=== PATIENT | female | born 1940 | race Caucasian/White ===

== ENCOUNTER 2017-09-12 14:21 | Emergency (ER) | payer OTHER ==
[~2017-09-12 14:21] MED LIST: MIRA0.12 PO; OLAN2.5T PO; VENL25TA14 PO
[2017-09-12 14:26] VITALS: BP 146/76; PULSE 86; RESP 12; TEMP 98.1; O2SAT 98
--- NOTE | 2017-09-12 15:32 | RADRPT ---
EXAM DATE/TIME: 09/12/2017 15:05 [facility] COMPARISON: No previous studies available for comparison. INDICATIONS : Pain mid shaft of left humerus to left elbow MEDICAL HISTORY : fell 07/2017 SURGICAL HISTORY : left shoulder replacement done over 07/2017. original surgery 07/2016 ENCOUNTER: Initial ACUITY: 1 month PAIN SCORE: 5/10 LOCATION: Left shoulder FINDINGS: 2 views of the left humerus reveal an acute comminuted fracture of the distal humeral metadiaphysis. This occurs just distal to the intramedullary fernando. It is associated with 3 cerclage wires. One cercla ge wire has been displaced into the adjacent soft tissues. The distal fracture fragment has been disp laced lateral and posterior relative to the more proximal fracture fragment. Underlying osteopenia no ravin. 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 CONCLUSION: Acute distal humeral fracture as detailed above. Tio Tran Jr., MD on September 12, 2017 at 15:28 Board Certified Radiologist. This report was verified electronically.
--- NOTE | 2017-09-12 16:11 | PD ---
HPI Chief Complaint: Injury Time Seen by Provider: 15:38 Travel History International Travel<30 days: No Contact w/Intl Traveler<30days: No Traveled to known affect area: No History of Present Illness HPI 37-year-old female presents to emergency department complaining of left arm pain. Patient states that she had surgery August [address] Koenig and has had difficulty with movement of her shoulder. Patient has not followed up with an orthopedist yet and today complains of pain to her distal humerus. Patient does have sensation and movement as usual. Patient denies falls or trauma to the left arm or elbow. States her shoulder "feels floppy" and as occasionally tingling of the pinky finger. Patient also states that she has abnormal sensation of her thumb that improves with movement. PFSH Past Medical History Depression: Yes Diminished Hearing: No Musculoskeletal: Yes (RESTLESS LEG SYNDROME) Psychiatric: Yes Immunizations Current: Yes Seizures: Yes Past Surgical History Abdominal Surgery: Yes (GASTRIC BYPASS) Appendectomy: Yes Section: Yes Cholecystectomy: Yes Gynecologic Surgery: Yes Tonsillectomy: Yes Other Surgery: Yes (broken left arm fall 2016) Social History Alcohol Use: Yes (ON OCCASION) Tobacco Use: No (QUIT IN 1969) Substance Use: No Allergies-Medications (Allergen,Severity, Reaction): Coded Allergies: codeine (Unverified Allergy, Severe, Hallucinations, 09/12/17) penicillin G (Unverified Allergy, Severe, 09/12/17) SWELLING Sulfa (Sulfonamide Antibiotics) (Unverified Allergy, Unknown, 09/12/17) Reported Meds & Prescriptions Reported Meds & Active Scripts Active Reported Lisinopril 2.5 Mg Tab 2.5 Mg PO DAILY Lamotrigine 25 Mg Tab 25 Mg PO DAILY Neupro Patch 24 HR (Rotigotine Patch 24 HR) 6 Mg/24 Hr Patch 6 Mg T-DERMAL DAILY Gabapentin 100 Mg Cap 100 Mg PO BID Effexor (Venlafaxine HCl) 25 Mg Tab 25 Mg PO Q12H Review of Systems Except as stated in HPI: all other systems reviewed are Neg Physical Exam Narrative GENERAL: Well-developed well-nourished in no apparent distress SKIN: Focused skin assessment warm/dry. HEAD: Atraumatic. Normocephalic. EYES: Pupils equal and round. No scleral icterus. No injection or drainage. ENT: No nasal bleeding or discharge. Mucous membranes pink and moist. NECK: Trachea midline. No JVD. MUSCULOSKELETAL: No obvious deformities. No clubbing. No cyanosis. No edema. Left arm- long arm cast to upper mid humerus. Neurovascularly intact distally. No significant edema or ecchymosis observed. Left shoulder- noticeable atrophy of the shoulder girdle without tenderness to palpation or deformities. NEUROLOGICAL: Awake and alert. No obvious cranial nerve deficits. Motor grossly within normal limits. Normal speech. PSYCHIATRIC: Appropriate mood and affect; insight and judgment normal. Data Data Last Documented VS Vital Signs Date Time Temp Pulse Resp B/P (MAP) Pulse Ox O2 Delivery O2 Flow Rate FiO2 09/12/17 14:26 98.1 86 12 146/76 (99) 98 Orders Orders Humerus (Min 2vws) (09/12/17 ) Ed Discharge Order (09/12/17 16:31) [facility] Medical Decision Making Medical Screen Exam Complete: Yes Emergency Medical Condition: Yes Differential Diagnosis Humerus fracture versus contusion versus, surgeries Narrative Course 37-year-old female presents to emergency department complaining of left arm pain. Patient states that she had surgery August [address] Koenig and has had difficulty with movement of her shoulder. Patient has not followed up with an orthopedist yet and today complains of pain to her distal humerus. Patient does have sensation and movement as usual. Patient denies falls or trauma to the left arm or elbow. States her shoulder "feels floppy" and as occasionally tingling of the pinky finger. Patient also states that she has abnormal sensation of her thumb that improves with movement. Vital signs stable Physical exam- patient in a long-arm cast, no significant ecchymosis or edema, neurovascularly intact distally and proximally. No evidence of trauma or falls. I spoke with Dr. Cason, her new orthopedist and he reviewed previous and current x-ray of her left arm. He states that the x-ray is stable. Patient is neurovascularly intact and in no acute distress. He recommended a follow-up as scheduled with him. I explained this thoroughly to patient and patient was reassured. I also explained patient complains of occasional numbness and tingling of the pinky. 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 Patient likely has some tenderness along her thumb and was advised to keep her hands moving to reduce atrophy and neuropathy of the hand. Again patient is neurovascularly intact. Patient to continue medications as prescribed in her previous office visits. Follow-up with primary care within 2-3 days. If symptoms persist or worsen return to the emergency department Physician Communication Physician Communication I spoke with Dr. Cason, her new orthopedist and he reviewed the x-rays from prior treatment and the current. Based off of my history and physical and Dr. Cason is evaluation patient will follow-up as scheduled with him. Diagnosis Primary Impression: Humerus fracture Qualified Codes: S42.402A - Unspecified fracture of lower end of left humerus , initial encounter for closed fracture Referrals: Orthopedist Additional Instructions: Followed up with your orthopedist as scheduled. Continue to move your hands and fingers to reduce weakening of her muscles If your persist or worsen return to the emergency department Disposition: 01 DISCHARGE HOME Condition: Stable Riddhi Roth Sep 12, 2017 16:11
[2017-09-12] MEDS ORDERED: ROTI6DIS T-DERMAL (16:14)
[2017-09-12] MEDS ORDERED: VENL25TA PO (16:14)
[2017-09-12] MEDS ORDERED: GABA100C4 PO (16:14)
[2017-09-12] MEDS ORDERED: LISI2.5T3 PO (16:15)
[2017-09-12] MEDS ORDERED: LAMO25TA PO (16:15)
== END 2017-09-12 17:03 | disposition home or self-care (01) ==
LOC: NEPK 14:21
DX: S42.492A Other displaced fracture of lower end of left humerus, initial encounter for closed fracture (principal); F32.9 Major depressive disorder, single episode, unspecified; G25.81 Restless legs syndrome; R56.9 Unspecified convulsions; X58.XXXA Exposure to other specified factors, initial encounter; Z79.899 Other long term (current) drug therapy; Z88.5 Allergy status to narcotic agent; Z88.0 Allergy status to penicillin; Z88.2 Allergy status to sulfonamides
CPT/HCPCS: 73060; 99283

== ENCOUNTER 2017-09-23 06:03 | Inpatient (IN) | payer OTHER, MEDICARE ==
[~2017-09-23] VITALS: Ht 160 cm; Wt 68.5 kg
[~2017-09-23 06:03] MED LIST changes: +GABA100C4 PO; +LAMO25TA PO; +LISI2.5T3 PO; -MIRA0.12 PO; -OLAN2.5T PO; +ROTI6DIS T-DERMAL; +VENL25TA PO; -VENL25TA14 PO
[2017-09-23] MEDS ORDERED: VENTAER INH (06:59)
[2017-09-23] MEDS ORDERED: SYMB160A INH (06:59)
[2017-09-23] MEDS ORDERED: CARV6.252 PO (06:59)
[2017-09-23] MEDS ORDERED: TRAM50TA PO (06:59)
[2017-09-23] MEDS ORDERED: HYDR-3516 PO (06:59)
[2017-09-23] MEDS ORDERED: CLINDAMYCIN 900 MG/NS 100 ML IV SCH ×2 (07:00)
[2017-09-23] MEDS ORDERED: VANCOMYCIN 1000 MG/NS 250 ML (for <70 kg) IV SCH ×2 (07:00)
[2017-09-23] MEDS ORDERED: POVIDONE IODINE 5% (ANTISEPSIS KIT) 4 APPLICATIONS EACH NARE PRN (07:00)
[2017-09-23] MEDS ORDERED: SODIUM CHLORID 0.9% 500 ML IV PRN (07:00)
[2017-09-23] MEDS ORDERED: CHLORHEXIDINE GLUCONATE 2 % 1 PACK (2 CLOTHS) TOPICAL PRN (07:00)
[2017-09-23] MEDS ORDERED: LACTATED RINGER'S 1000 ML IV PRN (07:00)
[2017-09-23] MEDS ORDERED: INSULIN HUMAN REGULAR 1,000 UNITS/10 ML VIAL SQ PRN (07:00)
[2017-09-23] MEDS ORDERED: METOPROLOL TARTRATE 25 MG TAB PO PRN (07:00)
[2017-09-23] MEDS ORDERED: CHLORHEXIDINE GLUCONATE 4% SOLN 120 ML BTL TOPICAL SCH (07:00)
[2017-09-23] MEDS ORDERED: GENTAMICIN SULFATE 80 MG/2 ML VIAL ONE (07:02)
[2017-09-23] MEDS ORDERED: VANCOMYCIN HCL 1000 MG VIAL ONE ×2 (07:02→09:49)
[2017-09-23] MEDS ORDERED: APREPITANT 40 MG CAP ONE (07:31)
[2017-09-23] MEDS ORDERED: ONDANSETRON HCL 4 MG/2 ML VIAL ONE (07:31)
[2017-09-23] MEDS ORDERED: FAMOTIDINE 20 MG/2 ML VIAL ONE (07:38)
[2017-09-23] MEDS ORDERED: ACETAMINOPHEN 1000 MG/100 ML 100 ML IV ONE (07:38)
[2017-09-23] MEDS ORDERED: CLINDAMYCIN PHOS 600 MG/4 ML VIAL ONE (08:06)
--- NOTE | 2017-09-23 09:35 | EKG ---
Date Performed: 09/23/2017 Time Performed: 07:46:24 PTAGE: 77 years EKG: Baseline artifact present Sinus rhythm NONSPECIFIC T-WAVE ABNORMALITY BORDERLINE ECG NO PREVIOUS TRACING DOCTOR: Kian Koehler Interpretating Date/Time 09/23/2017 09:34:39
[2017-09-23] MEDS ORDERED: ONDANSETRON HCL 4 MG/2 ML VIAL IVP PRN (10:00)
[2017-09-23] MEDS ORDERED: diphenhydrAMINE HCL 25 MG CAP PO PRN (10:00)
[2017-09-23] MEDS ORDERED: MORPHINE SULFATE 4 MG/ML INJ IV PUSH PRN (10:00)
--- NOTE | 2017-09-23 10:08 | PD.OP ---
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 Surgeon: Erik Saldana Home Appliance Technician(s): MAG Stein PA-C The surgical procedure was assisted by my physician assistant professor of history. My P.A. presence was necessary throughout this case for the manipulation and positioning of the surgical extremity. My P.A. was assisting me throughout the duration of this procedure. The skill set of a physician assistant professor of history was medically necessary to complete this procedure. During the surgical case the telecommunications switch technician was working at the back table and the physician assistant professor of history was directly assisting me. Operation and Findings: Patient was seen and evaluated preoperatively. She has a left distal humerus fracture nonunion. She initially had surgery by Dr. Koenig and chandan don 6 weeks ago. She has continued pain and nonunion. Treatment options were discussed regarding humerus fracture including surgical and nonsurgical treatments. After detailed discussion of risk and benefits of procedure patient wishes to proceed with surgery. Risks of surgery include bleeding, infection, nonunion, malunion, painful hardware, loss of motion of shoulder and elbow, weakness and numbness of arm, as well as medical competitions including blood clots stroke and . Patient was brought to operating room and placed on the OR table. GETA was administered by anesthesiologist. Patient was positioned in lateral decubitus position. Extremities were well-padded. Axillary roll was placed. Operative arm and shoulder were prepped with alcohol followed by Hibiclens and draped usual sterile fashion. Timeout procedure was performed. IV antibiotics were given prior to incision. A standard posterior approach was utilized. Subcutaneous tissues was dissected with Bovie. The triceps muscle was split midline. The radial nerve was identified and protected throughout the procedure. The nerve was intact. Because of the previous surgeries as well as the nonunion, there was a large amount of scar tissue around the radial nerve and fracture site. The fracture was identified. There was gross mobility at the fracture site. There was a large amount of fracture callus around the soft tissue of the fracture. The fracture callus was harvested for use as bone graft. Curettes and rongeurs were used to carefully harvest this fracture callus. Soft tissue was removed from the fracture site. The nonunion site was thoroughly debrided. Fracture site was cleaned with curettes and rongeurs the fracture was manipulated to achieve reduction. At this point the fracture was reduced using fracture tenaculums. Multiplanar fluoroscopy confirmed excellent of fracture. A Synthes 3.5 plate was contoured to fit the humerus. Plate was provisionally held the bone with K wires. 3.5 cortical screws were placed distal to the fracture to compress plate to bone. Next attention was turned to the proximal end of the plate. Cables were carefully passed around the humeral shaft. 3 cables were passed along the plate. Care was taken to avoid injury to neurovascular structures. The cables were carefully tensioned appropriately. Multiplanar fluoroscopy confirmed excellent alignment of fracture with well- placed hardware. Additional unicortical locking screws were placed proximally along the prosthesis for additional rotational stability. Additional locking screws were placed distally. All screws were predrilled and premeasured for appropriate length. Final fluoroscopy revealed excellent alignment of fracture with well-placed hardware. Incision was thoroughly irrigated. The previously obtained bone graft was now packed around the nonunion site. Fascia was closed with #1 Vicryl, subcutaneous tissues closed with 3-0 Vicryl, and skin was closed with ilda. Sterile dressings were applied. Needle and sponge counts were correct. Patient was placed into a sling, and then transferred to recovery room in stable condition Erik Saldana MD Sep 23, 2017 10:08
[2017-09-23] MEDS ORDERED: HYDR-3288 PO (10:10)
[2017-09-23] MEDS ORDERED: ALBUTEROL SULFATE 90 MCG/ACT HFA 8 GM INHALER INH PRN (10:15)
[2017-09-23] MEDS ORDERED: DO NOT ADM ANY ANTICOAGULANT DRUGS PRN (10:28)
[2017-09-23] MEDS ORDERED: CALCTAB19 PO (10:35)
[2017-09-23] MEDS ORDERED: VITA500012 PO (10:35)
--- NOTE | 2017-09-23 10:38 | HHI.FF ---
Face to Face Verification Diagnosis: (1) Fracture of humeral shaft, left, closed Occupational Therapy Left UE Weight Bearing: Non WB Left UE Range of Motion: Passive ROM Additional Instructions Passive range of motion of shoulder and elbow. Pendulum swing education. Sling all times except for range of motion Nursing Dressing Changes: Daily dressing change, Robbi wrap, 4x4s, Xeroform Additional Instructions Loose Robbi wrap. No Urban to be used I have seen patient Isabella Allen on 09/23/17. My clinical findings support the need for the requested home health care services because: Limited ability to care for self I certify that my clinical findings support that this patient is homebound because: Post-op weakness Tho Camejo Jr. BRANDON Sep 23, 2017 10:38
--- NOTE | 2017-09-23 10:41 | PD.ORT.PN ---
Subjective Subjective Remarks Patient transferred in stable condition to PACU Objective Vitals Vital Signs Date Time Temp Pulse Resp B/P (MAP) Pulse Ox O2 Delivery O2 Flow Rate FiO2 09/23/17 07:14 98.0 65 20 154/67 (96) 98 I/O 09/22/17 09/22/17 09/22/17 09/23/17 09/23/17 09/23/17 07:00 15:00 23:00 07:00 15:00 23:00 Intake Total 1400 ml Output Total 150 ml Balance 1250 ml Intake Other 1400 ml Output Estimated Blood Loss 150 ml Objective Remarks Left upper extremity: Clean dry dressings intact. Sling in place. Distally good capillary refills Assessment & Plan Assessment and Plan Left periprosthetic humeral shaft fracture revision POD 0 with ORIF Nonweightbearing left upper extremity Physical therapy for passive range of motion of shoulder and elbow. Pendulum swings Sling at all times except for range of motion exercises Plan for discharge to home tomorrow with home health care Follow-up with Dr. Cason or PA in 2 weeks Tho Camejo Jr. Sep 23, 2017 10:41
[2017-09-23] MEDS ORDERED: *morphine SULFATE 8 MG/ML PERIprocedure ONLY ONE (10:56)
[2017-09-23] MEDS ORDERED: *ENALAPRILAT 1.25 MG/ML VIAL PERIprocedural Use ONLY ONE (11:04)
--- NOTE | 2017-09-23 11:06 | RADRPT ---
EXAM DATE/TIME: 09/23/2017 09:43 [facility] COMPARISON: HUMERUS LEFT (MIN 2VWS), September 12, 2017, 15:05. INDICATIONS : Left humerus open reduction internal fixation. MEDICAL HISTORY : None. SURGICAL HISTORY : Left humerus, ORIF. ENCOUNTER: Initial ACUITY: 1 day PAIN SCORE: Non-responsive. LOCATION: Left humerus FINDINGS: 9 spot fluoroscopic images of the humerus obtained in the operating room during a procedure demonstra jair placement of a humeral side plate with multiple interlocking screws. There is an already indwelli ng fernando within the humerus. Cerclage wires have been repositioned or replaced. There is improved anato bev alignment. CONCLUSION: Improved alignment following left humerus ORIF. Tommy Mota MD on September 23, 2017 at 11:03 Board Certified Radiologist. This report was verified electronically.
[2017-09-23 11:45] VITALS: BP 160/75; PULSE 67; RESP 18; TEMP 96.1; O2SAT 97
[2017-09-23] MEDS ORDERED: DEXAMETHASONE SOD PHOS 4 MG/ML VIAL IV ONE (12:00)
[2017-09-23] MEDS ORDERED: GLYCOPYRROLATE 1 MG/5 ML SYRINGE IV PUSH ONE (12:00)
[2017-09-23] MEDS ORDERED: LIDOCAINE HCL 1% PF 5 ML SYRINGE OTHER ONE (12:00)
[2017-09-23] MEDS ORDERED: PHENYLEPH/NS 1000 MCG/10 ML SYR IV ONE (12:00)
[2017-09-23] MEDS ORDERED: ROCURONIUM INJ 50 MG/5 ML SYRINGE IV PUSH ONE (12:00)
[2017-09-23] MEDS ORDERED: MIDAZOLAM HCL 2 MG/2 ML VIAL IV ONE (12:00)
[2017-09-23] MEDS ORDERED: NEOSTIGMINE 5 MG/5 ML SYRINGE IV PUSH ONE (12:00)
[2017-09-23] MEDS ORDERED: PROPOFOL 200 MG/20 ML AMP IV ONE (12:00)
[2017-09-23] MEDS ORDERED: ceFAZolin INJ 1,000 MG VIAL IV ONE (12:00)
[2017-09-23] MEDS ORDERED: METOPROLOL TARTRATE 5 MG/5 ML VIAL IV PUSH ONE (12:00)
[2017-09-23] MEDS ORDERED: PILL SPLITTER OTHER PRN (12:15)
[2017-09-23] MEDS ORDERED: ERGOCALCIFEROL (VIT D2) 50,000 UNIT CAP PO SCH (13:00)
[2017-09-23] MEDS: CALCIUM/VITAMIN D 250 MG/125 U TAB PO SCH ×2 (15:21→17:14)
[2017-09-23 16:00] VITALS: BP 188/99; PULSE 74; RESP 18; TEMP 96.7; O2SAT 98
[2017-09-23] MEDS ORDERED: CLINDAMYCIN 600 MG/DEX PREMIX 50 ML IV SCH (16:00)
[2017-09-23] MEDS: ACETAMINOPHEN/HYDROcodone 325 MG/7.5 MG TAB PO PRN ×2 (17:15→22:23)
[2017-09-23] MEDS: VENLAFAXINE HCL 25 MG TAB PO SCH ×2 (17:16→21:00)
[2017-09-23 19:00] VITALS: BP 194/78; PULSE 70; RESP 18; TEMP 96.7; O2SAT 98
[2017-09-23] MEDS: DOCUSATE SODIUM 50 MG/SENNA 8.6 MG TAB PO SCH (21:00)
[2017-09-23] MEDS: BUDESONIDE-FORMOTEROL 160/4.5 MCG INHALER INH SCH (21:00)
[2017-09-23] MEDS: CARVEDILOL 6.25 MG TAB PO SCH (22:14)
[2017-09-23] MEDS: GABAPENTIN 100 MG CAP PO SCH (22:15)
[2017-09-23 23:29] VITALS: BP 146/67; PULSE 77; RESP 18; TEMP 98.3; O2SAT 94
[2017-09-23] MEDS ORDERED: lamoTRIgine 25 MG TAB PO ONE (23:30)
[2017-09-23] MEDS: CLINDAMYCIN 600 MG/NS PREMIX 50 ML IV SCH (23:42)
[2017-09-24] MEDS: ACETAMINOPHEN/HYDROcodone 325 MG/7.5 MG TAB PO PRN ×3 (02:08→15:41)
--- NOTE | 2017-09-24 07:21 | PD.ORT.PN ---
Subjective Subjective Remarks pt complains of post op soreness involving left arm Objective Vitals Vital Signs Date Time Temp Pulse Resp B/P (MAP) Pulse Ox O2 Delivery O2 Flow Rate FiO2 09/23/17 23:29 98.3 77 18 146/67 (93) 94 09/23/17 19:00 96.7 70 18 194/78 (116) 98 09/23/17 16:00 96.7 74 18 188/99 (128) 98 09/23/17 11:45 96.1 67 18 160/75 (103) 97 09/23/17 11:22 98.4 66 15 153/75 (101) 98 Nasal Cannula 2 09/23/17 11:00 66 17 177/59 (98) 98 Nasal Cannula 2 09/23/17 10:45 70 17 158/70 (99) 96 Nasal Cannula 3 09/23/17 10:31 98.2 67 14 149/67 (94) 100 Simple Mask 6 I/O 09/23/17 09/23/17 09/23/17 09/24/17 09/24/17 09/24/17 07:00 15:00 23:00 07:00 15:00 23:00 Intake Total 2100 ml 530 ml 360 ml Output Total 150 ml Balance 1950 ml 530 ml 360 ml Intake Oral 600 ml 480 ml 360 ml IV Total 100 ml 50 ml Other 1400 ml Output Urine Total 0 ml Estimated Blood Loss 150 ml # Voids 2 3 1 # Bowel Movements 0 0 0 Objective Remarks seen by Dr. Alber Hernandez Left upper extremity: Clean dry dressings intact. Sling in place. Distally good capillary refills Assessment & Plan Assessment and Plan Left periprosthetic humeral shaft fracture revision POD #1 with ORIF Nonweightbearing left upper extremity Physical therapy for passive range of motion of shoulder and elbow. Pendulum swings Sling at all times except for range of motion exercises Plan for discharge home today with [facility] if physical therapy thinks appropriate has hx of Restleg legs syndrome, normally on Neupro 6 mg patch, fine for patient to use Follow-up with Dr. Cason or PA in 2 weeks Jacqueline Montenegro Sep 24, 2017 07:21
[2017-09-24] MEDS: CLINDAMYCIN 600 MG/NS PREMIX 50 ML IV SCH (07:54)
[2017-09-24 08:00] VITALS: BP 149/69; PULSE 65; RESP 20; TEMP 97.9; O2SAT 98
[2017-09-24] MEDS ORDERED: DOCUSATE SODIUM 100 MG CAP PO SCH (09:00)
[2017-09-24] MEDS ORDERED: ROTIGOTINE TOPICAL SCH (09:00)
[2017-09-24] MEDS ORDERED: LISINOPRIL 5 MG TAB PO SCH (09:00)
[2017-09-24] MEDS: DOCUSATE SODIUM 50 MG/SENNA 8.6 MG TAB PO SCH (09:00)
[2017-09-24] MEDS ORDERED: CHOLECALCIFEROL (VIT D3) 1000 UNIT TAB PO SCH (09:00)
[2017-09-24] MEDS ORDERED: lamoTRIgine 25 MG TAB PO SCH (09:00)
[2017-09-24] MEDS: BUDESONIDE-FORMOTEROL 160/4.5 MCG INHALER INH SCH ×2 (09:00→09:17)
[2017-09-24] MEDS: CALCIUM/VITAMIN D 250 MG/125 U TAB PO SCH ×3 (09:17→17:52)
[2017-09-24] MEDS: CARVEDILOL 6.25 MG TAB PO SCH (09:17)
[2017-09-24] MEDS: VENLAFAXINE HCL 25 MG TAB PO SCH (09:18)
[2017-09-24] MEDS: GABAPENTIN 100 MG CAP PO SCH (09:19)
[2017-09-24 12:00] VITALS: BP 183/83; PULSE 63; RESP 20; TEMP 98.7; O2SAT 95
[2017-09-24 16:00] VITALS: BP 140/60; PULSE 70; RESP 20; TEMP 97.8; O2SAT 98
== END 2017-09-24 19:22 | DRG 494 ==
LOC: HSDI 06:03 → N06A 11:47
PROVIDERS: ADMIT Orthopaedic Surgery Orthopaedic Trauma; ATTEND Orthopaedic Surgery Orthopaedic Trauma
PROC: 0PUG07Z Supplement Left Humeral Shaft with Autologous Tissue Substitute, Open Approach (ICD-10-PCS; 2017-09-23)
PROC: 0PSG04Z Reposition Left Humeral Shaft with Internal Fixation Device, Open Approach (ICD-10-PCS; principal; 2017-09-23 08:00)
DX: S42.302K Unspecified fracture of shaft of humerus, left arm, subsequent encounter for fracture with nonunion (principal); I10 Essential (primary) hypertension; G25.81 Restless legs syndrome; J45.909 Unspecified asthma, uncomplicated; M81.0 Age-related osteoporosis without current pathological fracture; Z96.612 Presence of left artificial shoulder joint; Z87.891 Personal history of nicotine dependence; W19.XXXD Unspecified fall, subsequent encounter
CPT/HCPCS: 73060; 76000; 93005; C1713; J0131; J0690; J1100; J1580; J2250; J2270; J2370; J2405; J2710; J3010; J3370; J7050; J7120; J8501